=== PATIENT | male | born 1995 | race Caucasian/White ===

== ENCOUNTER 2023-02-23 01:20 | Emergency (ER) | payer OTHER, SELFPAY ==
[2023-02-23 01:23] VITALS: BP 146/96; PULSE 100; RESP 18; TEMP 37.3; O2SAT 100; BMI 29.8
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
[2023-02-23] MEDS: oxyCODONE 5 MG Tablet PO (01:49)
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
[2023-02-23 03:14] VITALS: BP 124/69; PULSE 72; RESP 15; O2SAT 97
== END 2023-02-23 03:15 | disposition home or self-care (01) ==
PROVIDERS: Emergency Provider Emergency Medicine; Visit Provider Emergency Medicine
DX: Z04.1 Encounter for examination and observation following transport accident (principal); M25.532 Pain in left wrist; R07.81 Pleurodynia; M25.531 Pain in right wrist
CPT/HCPCS: 71101; 73110; 99283